=== PATIENT | female | born 1945 | race Caucasian/White ===

== ENCOUNTER 2019-11-12 04:13 | Inpatient (IN) ==
--- NOTE | 2019-11-07 10:52 | EKG Report ---
Test Performed on : 11/07/2019 10:47:59 AM Test Reason : PAT Blood Pressure : / mmHG Vent. Rate : 069 BPM Atrial Rate : 069 BPM P-R Int : 182 ms QRS Dur : 080 ms QT Int : 412 ms P-R-T Axes : 068 028 060 degrees QTc Int : 441 ms Normal sinus rhythm. Anteroseptal infarct , age undetermined Abnormal ECG No previous ECGs available Confirmed by Amando TOWNSEND, Isidro Dc ([id number]) on 11/07/2019 12:24:19 PM
[2019-11-07 11:32] LABS: HEMATOCRIT 25.6 % (37.0-47.0); HEMOGLOBIN 7.3 g/dL (12.0-16.0); MCH 22.3 PG (27-31); MCHC 28.5 g/dL (33-37); MCV 78.3 FL (81-99); MPV 9.3 FL (7.4-10.4); RBC 3.27 XMIL (4.2-5.4); RDW 15.4 % (11.5-14.5); WBC 9.1 X1000 (4.8-10.8)
[2019-11-07 11:52] LABS: CALCIUM 9.7 mg/dL (8.8-10.2); POTASSIUM 4.4 mmol/L (3.5-5.1)
[2019-11-12] MEDS ORDERED: LR 1,000 ML ONE (06:44)
[2019-11-12] MEDS ORDERED: KEFZOL 1 GM/D5W 1 GM/50 ML IVPB ONE (06:44)
[2019-11-12] MEDS ORDERED: ROBINUL ONE (07:41)
[2019-11-12] MEDS ORDERED: XYLOCAINE-MPF 2% ONE (07:41)
[2019-11-12] MEDS ORDERED: DIPRIVAN 1% ONE (07:41)
[2019-11-12] MEDS ORDERED: QUELICIN (DOSE) ONE (07:42)
[2019-11-12] MEDS ORDERED: VERSED ONE (08:00)
[2019-11-12] MEDS ORDERED: MARCAINE 0.25% PF ONE (08:26)
[2019-11-12] MEDS ORDERED: OFIRMEV 1000 MG/ISOTONIC SOLN 1,000 MG/100 ML BOTTLE ONE (09:01)
[2019-11-12 09:06] LABS: URINE SOURCE CATH
[2019-11-12] MEDS ORDERED: SODIUM CHLORIDE 0.9% ONE (09:08)
[2019-11-12 09:10] LABS: BILIRUBIN URINE NEGATIVE (NEGATIVE); BLOOD URINE NEGATIVE (NEGATIVE); COLOR YELLOW; GLUCOSE URINE NEGATIVE (NEGATIVE); KETONE URINE NEGATIVE (NEGATIVE); LEUKOCYTES URINE NEGATIVE (NEGATIVE); NITRITE URINE NEGATIVE (NEGATIVE); PROTEIN URINE NEGATIVE (NEGATIVE); SP GRAVITY URINE 1.013; TURBIDITY URINE CLEAR (CLEAR); UROBILINOGEN URINE NORMAL (NORMAL)
[2019-11-12 09:11] LABS: UR EPITHELIAL CELLS <10 /HPF (<10); URINE BACTERIA NEGATIVE /HPF; URINE RBC <10 /HPF (<10); URINE WBC <10 /HPF (<10)
[2019-11-12] MEDS ORDERED: ZEMURON ONE (09:37)
[2019-11-12] MEDS ORDERED: BRIDION ONE (10:04)
[2019-11-12] MEDS ORDERED: LASIX ONE (10:16)
[2019-11-12] MEDS ORDERED: CALCIUM CHLORIDE SYRINGE ONE (10:17)
[2019-11-12] MEDS ORDERED: FENTANYL ONE (10:58)
[2019-11-12] MEDS ORDERED: ZOFRAN ONE (10:58)
--- NOTE | 2019-11-12 12:28 | Diag Imaging Result Doc PS360 ---
CHEST-PORTABLE - 11/12/2019 INDICATION: post thoracotomy COMPARISON: 10/25/2019 FINDINGS: There are new double left chest tubes. There are new left lateral skin familia. Stable sternotomy wires. Lung volumes are lower. There is some linear atelectasis in the right lung. No pneumothorax or large pleural effusion. IMPRESSION: No definite complication. Electronically signed by Lane Bess 11/12/2019 12:26 PM
[2019-11-12] MEDS: NS 1,000 ML IV SCH (12:30)
[2019-11-12] MEDS: DILAUDID IV PRN ×3 (14:10→20:39)
[2019-11-12] MEDS: OFIRMEV 1000 MG/ISOTONIC SOLN 1,000 MG/100 ML BOTTLE IV SCH ×3 (14:13→23:05)
--- NOTE | 2019-11-12 15:15 | OPERATIVE NOTE ---
PROCEDURE DATE: 11/12/2019 PROCEDURES PERFORMED: 1. Bronchoscopy. 2. Left anterolateral thoracotomy with left upper lobectomy. SURGEON: Bethel Langston M.D. QUANTITATIVE RESEARCHER: Pablito Alvarez RN. 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 DESCRIPTION OF PROCEDURE: Satisfactory general endotracheal anesthesia was achieved. The patient was supine. We introduced the flexible bronchoscope into the trachea. The bill was noted to be about 25 cm. We looked in the right upper lobe, middle lobe, lower lobe orifices on the right, and all appeared normal. We looked in the left side. The left mainstem, left upper lobe, left lower lobe orifices appeared normal. No anomalies were identified. No endobronchial lesions were identified. The patient was then switched to a double lumen tube, and a right-sided double lumen tube was placed, and after the anesthesiologist had checked it and felt that it was appropriately positioned, we then turned the patient on her side with the left side up, and secured her there once again. The anesthesiologist was satisfied that the tube was appropriately positioned. They clamped off the lumen to the left side, and she ventilated satisfactorily without excessive pressures. The left chest was then prepped and draped in a sterile fashion. We marked the skin 2 fingerbreadths below the tip of the scapula. We made a crossing remi so that we could reorient the skin appropriately at the end of the procedure. We then incised the skin, and where it was marked, we made an anterolateral thoracotomy incision. We carried our incision through the subcutaneous tissue, through the latissimus dorsi muscle, through the serratus anterior muscle. Hemostasis was satisfactory. We then lifted up the scapula, and then counted down to the fifth rib. They did clamp off the left side, and so the left lung was deflating while we were opening. We then proceeded to divide the intercostal muscle until we entered the pleural space. We then opened the chest to the extent of the skin incision both posteriorly and anteriorly. There were adhesions anteriorly as expected due to her previous left internal mammary artery bypass graft to her LAD. We then took an extensive amount of time dissecting these adhesions, beginning at the lingula and dissected cephalad or superiorly, but we carefully dissected. We incised the adhesions in the major fissure. We continued our careful dissection with scissors until we actually identified the LONDONO at its proximal aspect. We then continued to dissect on top of it. We identified clips off the LONDONO. We the lung tissue from the LONDONO until the LONDONO was seen to come to the heart itself. We the LONDONO from the left upper lobe, and then took the adhesions down from the back of the sternum, where the LONDONO had originally been positioned. After we took all those adhesions down with electrocautery, we then had the upper lobe completely free anteriorly. It was at this point that we started incising the pleura over the pulmonary artery. We dissected both anteriorly and posteriorly down to the major fissure posteriorly. We used a pusher then to sweep the tissue off the pulmonary artery. We did take a hilar node. We took a mediastinal node and sent those separately. We dissected the branches to the upper lobe, the apical branch, the anterior branch, and the posterior branches. We doubly ligated with 2-0 silks proximally and 2-0 silk distally x1, and then divided the vessels. We then turned our attention to the anterior pulmonary vein, and swept the tissue off of it. We then ligated the branches of the vein individually with 2-0 silks, dissected behind the vein, and used a TA-30 vascular stapler to staple the anterior pulmonary vein. After it was stapled, we then divided the vein. The 3 branches to the upper lobe pulmonary from the pulmonary artery were ligated. The vein was ligated. We then turned our attention to the major fissure. Small clips to the left lower lobe were used to clip off small branches. We then came to the portion of the fissure where there was a very calcified, hard node. It was just above the area of the bronchus. It was intimately attached to the pulmonary artery. It was right where the superior dorsal branch came to the left lower lobe. In dissecting it off the pulmonary artery, we actually made a hole in the pulmonary artery, so we had to clamp the pulmonary artery proximally and distally, and went ahead and excised the node and left it attached to the upper lobe. We then made a hole in the pulmonary artery that required repair with a 6-0 Prolene stitch. After repair, we took the distal clamp off first, and it was hemostatic, and then the proximal clamp off, and only 1 additional stitch was used, and there was complete hemostasis of the pulmonary artery repair. We then were able to localize the upper lobe bronchus, and used a TA-30 degrees green staple to staple it off, and we then handed off the upper lobe. We irrigated out the chest cavity. We incised the inferior pulmonary ligament to free up the lower lobe. We achieved acceptable hemostasis. I did use ProGEL along the hilum of the lower lobe to try to seal the lung completely. Two 32 chest tubes were placed, one anteriorly, one posteriorly. We had an additional two holes in the posterior chest tube to provide adequate drainage. We inflated the lower lobe, and it inflated nicely. Again, hemostasis was acceptable. The LONDONO was completely fine, and we had not affected it whatsoever. We then proceeded to inject using Exparel and Marcaine, 30 mL along the course of the fifth and sixth ribs. We made drill holes in the fifth rib and sixth rib at [address], and then passed #2 Tycron stitches through the ribs for reapproximation. After those were placed, we then reapproximated the ribs with the rib reapproximated, and the #2 Tycrons were tied, thereby reapproximating the ribcage. We then used the rest of the Marcaine and Exparel for the subcutaneous tissue. We then proceeded to close the serratus anterior with a #1 Polysorb, the latissimus was closed with a #1 Polysorb, the subcutaneous tissue was closed with a 0 Polysorb, and the skin was closed with familia. Zero silks were used to secure the chest tubes. The chest tubes were attached to Pleur-evac. Sterile dressings were applied. She tolerated the procedure satisfactory, was given 4 units of blood during the procedure because we started with a hemoglobin of 7. Estimated blood loss was around 600 mL. She was sent to the recovery room in satisfactory condition. cc: Bethel Langston MD
[2019-11-12] MEDS: KEFZOL 1 GM/D5W 1 GM/50 ML IVPB IV SCH (16:16)
[2019-11-12] MEDS: DUONEB (A & A) INH SCH ×2 (16:36→21:20)
[2019-11-12 17:02] LABS: ALLEN TEST NO; BE -1.7 mmoll (-3.0-3.0); BLOOD TYPE ARTERIAL; HCO3-(ACT) 23.6 mmoll (20.0-26.0); METHB 1.1 % (0.0-1.5); O2(CT) 16.1 mL/dL (15.0-23.0); O2HB 96.2 % (95.0-99.0); PCO2(98.6) 48 mmHg (35-45); PO2(98.6) 138 mmHg (60-100); SAMPLE BLOOD; SAO2 99.1 % (95.0-100.0); THB 11.7 g/dL (11.5-17.4); pH(98.6) 7.32 (7.35-7.45)
[2019-11-12 17:06] LABS: MODALITY CANNULA
[2019-11-12] MEDS ORDERED: BLISTEX MEDICATED BERRY LIP BALM TOP PRN (17:13)
[2019-11-12] MEDS: ZOFRAN IV PRN (17:17)
[2019-11-12] MEDS: PERIDEX MT SCH (20:39)
[2019-11-13] MEDS: NS 1,000 ML IV SCH ×3 (00:09→16:42)
[2019-11-13] MEDS: KEFZOL 1 GM/D5W 1 GM/50 ML IVPB IV SCH (00:09)
[2019-11-13] MEDS: ZOFRAN IV PRN ×2 (01:50→20:22)
[2019-11-13] MEDS: DILAUDID IV PRN ×5 (01:50→23:00)
[2019-11-13] MEDS: DUONEB (A & A) INH SCH ×4 (03:35→21:30)
[2019-11-13 06:16] LABS: BASO# 0.01 X1000 (0.0-0.2); BASO% 0.1 % (0.0-0.8); EOS# 0.01 X1000 (0.0-0.7); EOS% 0.1 % (0.0-10.0); HEMATOCRIT 34.7 % (37.0-47.0); HEMOGLOBIN 10.9 g/dL (12.0-16.0); LYMPH# 1.57 X1000 (1.2-3.4); LYMPH% 13.6 % (20.5-51.1); MCH 25.5 PG (27-31); MCHC 31.4 g/dL (33-37); MCV 81.1 FL (81-99); MONO# 0.74 X1000 (0.11-0.59); MONO% 6.4 % (1.7-9.3); MPV 9.7 FL (7.4-10.4); NEUT# 9.19 X1000 (1.4-6.5); NEUT% 79.8 % (42.2-75.2); PLT 365 X1000 (130-400); RBC 4.28 XMIL (4.2-5.4); RDW 16.3 % (11.5-14.5); WBC 11.52 X1000 (4.8-10.8)
[2019-11-13 06:37] LABS: AGAP 11; BUN 17 mg/dL (8-22); CALCIUM 8.7 mg/dL (8.8-10.2); CHLORIDE 104 mmol/L (98-107); COSMO 274; CREATININE 0.8 mg/dL (0.5-0.9); ESTIMATED GFR > 60; GLUCOSE 110 mg/dL (70-104); POTASSIUM 3.9 mmol/L (3.5-5.1); SODIUM 136 mmol/L (136-145); TCO2 21 mmol/L (25-35)
[2019-11-13] MEDS: SYNTHROID PO SCH (06:43)
[2019-11-13] MEDS: OFIRMEV 1000 MG/ISOTONIC SOLN 1,000 MG/100 ML BOTTLE IV SCH ×4 (06:43→23:00)
--- NOTE | 2019-11-13 07:30 | Diag Imaging Result Doc PS360 ---
CHEST-PORTABLE - 11/13/2019 INDICATION: chest tubes COMPARISON: 11/12/2019 FINDINGS: Stable double left chest tubes. No pneumothorax or pleural effusion. Lung expansion is improved from prior. No significant infiltrates. Heart size remains normal. IMPRESSION: No complication. Electronically signed by Lane Bess 11/13/2019 7:28 AM
[2019-11-13] MEDS: LOTENSIN PO SCH (08:31)
[2019-11-13] MEDS: LIPITOR PO SCH (08:31)
[2019-11-13] MEDS: PERIDEX MT SCH ×2 (08:31→20:22)
--- NOTE | 2019-11-13 10:34 | GENERAL SURGERY PROGRESS NOTE ---
DATE: 11/13/2019 SUBJECTIVE: She is postop day 1 after a left thoracotomy and left upper lobectomy. She is doing generally well. She is awake and alert. OBJECTIVE: Vital signs: She is afebrile, heart rate 88, blood pressure 148/57. Respiratory: She has bilateral breath sounds. IMAGING: Her chest x-ray shows an expanded left lower lung. No significant fluid. I do not see an air leak this morning. She is hungry. Her urine output has been good. LABORATORY DATA: Today reveals a white count 61661, hemoglobin 10.9, hematocrit 34.7. Chemistry shows a potassium of 3.9. ASSESSMENT AND PLAN: I think she is doing generally well. We will remove her arterial line today. We will give her regular food. We will keep her Pedroza today. She is to get up in a chair. cc: Bethel Langston MD
[2019-11-14] MEDS: ZOFRAN IV PRN ×2 (02:33→20:08)
[2019-11-14] MEDS: DUONEB (A & A) INH SCH ×4 (03:30→22:52)
[2019-11-14] MEDS: OFIRMEV 1000 MG/ISOTONIC SOLN 1,000 MG/100 ML BOTTLE IV SCH (05:13)
[2019-11-14 06:18] LABS: BASO# 0.01 X1000 (0.0-0.2); BASO% 0.1 % (0.0-0.8); EOS# 0.06 X1000 (0.0-0.7); EOS% 0.6 % (0.0-10.0); HEMATOCRIT 33.9 % (37.0-47.0); HEMOGLOBIN 10.5 g/dL (12.0-16.0); LYMPH# 1.26 X1000 (1.2-3.4); LYMPH% 11.7 % (20.5-51.1); MCH 25.4 PG (27-31); MCV 81.9 FL (81-99); MONO# 1.07 X1000 (0.11-0.59); MONO% 9.9 % (1.7-9.3); MPV 9.3 FL (7.4-10.4); NEUT# 8.38 X1000 (1.4-6.5); NEUT% 77.7 % (42.2-75.2); PLT 359 X1000 (130-400); RBC 4.14 XMIL (4.2-5.4); RDW 17.2 % (11.5-14.5); WBC 10.78 X1000 (4.8-10.8)
[2019-11-14] MEDS: SYNTHROID PO SCH (06:24)
--- NOTE | 2019-11-14 07:11 | Diag Imaging Result Doc PS360 ---
EXAM: CHEST-PORTABLE 11/14/2019 HISTORY: post thoracotomy TECHNIQUE: AP portable at 0539 COMMENT: There are two chest tubes in the left hemithorax. There are surgical clips in the left hilar region and elevation of the left hemidiaphragm. There is apparent pneumothorax which may include some pleural fluid on the left measuring less than 6 mm over the upper lobe. This is slightly wider than on the previous examination of 11/13/2019. There is a smaller amount of fluid in the minor fissure on the right. IMPRESSION: Slightly enlarged left pneumothorax. Electronically signed by Venkatesh Santiago 11/14/2019 7:09 AM
[2019-11-14] MEDS ORDERED: NS 1,000 ML IV SCH (07:13)
[2019-11-14] MEDS: LOTENSIN PO SCH (08:26)
[2019-11-14] MEDS: PERIDEX MT SCH ×2 (08:26→20:08)
[2019-11-14] MEDS: LIPITOR PO SCH (08:26)
[2019-11-14] MEDS: NORCO-10 PO PRN ×4 (08:28→20:59)
[2019-11-14] MEDS: ASPIRIN PO SCH (10:41)
[2019-11-14] MEDS: BRILINTA PO SCH (10:41)
--- NOTE | 2019-11-14 12:12 | GENERAL SURGERY PROGRESS NOTE ---
DATE: 11/14/2019 SUBJECTIVE: She is 2 days after left upper lobectomy. This morning she is doing generally well. She is afebrile. OBJECTIVE: Heart rate is 96, blood pressure 139/62. She has bilateral breath sounds. Respiratory rate is 18. DIAGNOSTIC DATA: Her chest x-ray looks satisfactory. Her left lower lobe was well expanded. Intake 2120 and output 2355. I do not see an air leak in her anterior tube, minimal one in the posterior tube. Her white count is 10,800, hemoglobin 10.5. ASSESSMENT: Satisfactory progress. PLAN: The plan is to remove her anterior tube today. We will remove her Pedroza catheter. We will transfer her out to a regular room. cc: Bethel Langston MD
[2019-11-14] MEDS ORDERED: AMBIEN PO PRN (15:24)
[2019-11-14] MEDS ORDERED: MELATONIN PO PRN (17:44)
[2019-11-14] MEDS: DILAUDID IV PRN (20:02)
[2019-11-15] MEDS: NORCO-10 PO PRN (00:44)
[2019-11-15] MEDS: DILAUDID IV PRN ×3 (01:10→06:27)
[2019-11-15] MEDS: DUONEB (A & A) INH SCH ×3 (03:23→15:33)
[2019-11-15] MEDS: SYNTHROID PO SCH (06:27)
--- NOTE | 2019-11-15 06:42 | Diag Imaging Result Doc PS360 ---
EXAM: CHEST-PORTABLE HISTORY: post thoracotomy TECHNIQUE: Single view COMPARISON: 11/14/2019 FINDINGS: One of the left-sided chest tubes has been removed. No change in the other chest tube. Tiny left pneumothorax. There are lateral skin familia. Sternal wires and left hilar surgical clips. The lungs are well expanded. No infiltrates. No cardiomegaly. No pleural effusions identified. IMPRESSION: Slight improvement Electronically signed by Johnathon Jay 11/15/2019 6:39 AM
[2019-11-15] MEDS ORDERED: SALINE LOCK IV FLUID XX ONE (07:29)
[2019-11-15] MEDS ORDERED: DEMEROL PO PRN (07:30)
[2019-11-15] MEDS: PERIDEX MT SCH (08:37)
[2019-11-15] MEDS: LIPITOR PO SCH (08:37)
[2019-11-15] MEDS: BRILINTA PO SCH (08:37)
[2019-11-15] MEDS: ASPIRIN PO SCH (08:37)
[2019-11-15] MEDS: LOTENSIN PO SCH (08:39)
[2019-11-15] MEDS ORDERED: COLACE PO SCH (09:00)
[2019-11-15] MEDS ORDERED: NS 500 ML IV ONE (10:01)
--- NOTE | 2019-11-15 15:33 | GENERAL SURGERY PROGRESS NOTE ---
DATE: 11/15/2019 OBJECTIVE: She is afebrile, heart rate is 86, blood pressure 88/58. She has good breath sounds bilaterally. I do not see an air leak today, so we will remove her chest tube. Her chest x-ray looks fine. We will see her later today and consider her for discharge. Her wound looks fine. cc: Bethel Langston MD
[2019-11-15 15:57] VITALS: BP 148/72
--- NOTE | 2019-11-23 19:53 | DISCHARGE SUMMARY ---
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 PRIMARY PROCEDURE: Left thoracotomy left upper lobectomy. This is a 74-year-old lady who came to see me because of her left upper lobe cancer. It was previously biopsied percutaneously and found to be a squamous cell. She has a history of coronary artery disease, and has had previous coronary bypass using internal mammary on the left side. Her preoperative pulmonary evaluation was satisfactory to proceed with a lobectomy. She underwent the noted operation on the . Postoperatively she did generally well. We removed the arterial line on the first postoperative day. We did give her Exparel and Marcaine at the time of the surgery which did improve her and enhanced her pain relief postoperatively. We removed her anterior chest tube on the second postoperative day. We removed her Pedroza catheter as well. Transferred out of the unit. We were able to remove her posterior chest tube on the . It was felt she could be discharged home. So, we did allow her to go home the afternoon of the . It was difficult to find appropriate p.o. medicine for pain relief so we gave her a prescription for Demerol for p.o. pain relief. She will resume her Brilinta and other medications. She will return to see me in the office in over a week for staple removal. cc: Bethel Langston MD
== END 2019-11-15 17:18 | disposition home health service (06) | DRG 164 ==
LOC: SURHOLD 04:13 → ICU 13:34 → 4N 11-14 11:20
PROVIDERS: ADMIT Surgery; ATTEND Surgery

== ENCOUNTER 2019-11-27 09:14 | Inpatient (IN) ==
[2019-11-27] MEDS ORDERED: DUONEB (A & A) INH ONE (09:34)
[2019-11-27] MEDS ORDERED: ZOFRAN IV ONE (09:34)
[2019-11-27] MEDS ORDERED: MORPHINE IV ONE (09:34)
[2019-11-27] MEDS ORDERED: SOLU-MEDROL IV ONE (09:34)
--- NOTE | 2019-11-27 09:37 | EKG Report ---
Test Performed on : 11/27/2019 09:30:50 AM Test Reason : sob Blood Pressure : / mmHG Vent. Rate : 070 BPM Atrial Rate : 070 BPM P-R Int : 162 ms QRS Dur : 074 ms QT Int : 422 ms P-R-T Axes : 056 005 144 degrees QTc Int : 455 ms Normal sinus rhythm. Possible Left atrial enlargement Possible Anterior infarct (cited on or before 07-NOV-2019) T wave abnormality, consider lateral ischemia Abnormal ECG When compared with ECG of 07-NOV-2019 10:47, T wave inversion now evident in Inferior leads T wave inversion now evident in Lateral leads Unconfirmed Result
[2019-11-27 10:04] LABS: ALLEN TEST NO; BE -0.6 mmoll (-3.0-3.0); BLOOD TYPE ARTERIAL; HCO3-(ACT) 24.4 mmoll (20.0-26.0); METHB 1.3 % (0.0-1.5); MODALITY ROOM AIR; O2(CT) 14.3 mL/dL (15.0-23.0); O2HB 95.4 % (95.0-99.0); PCO2(98.6) 30 mmHg (35-45); PO2(98.6) 84 mmHg (60-100); SAMPLE BLOOD; SAO2 97.7 % (95.0-100.0); THB 10.6 g/dL (11.5-17.4); pH(98.6) 7.48 (7.35-7.45)
--- NOTE | 2019-11-27 10:19 | Diag Imaging Result Doc PS360 ---
EXAM: CHEST-2 VIEWS HISTORY: sob, recent left pneumonectomy TECHNIQUE: Two views COMPARISON: 11/15/2019 FINDINGS: There has been a partial left lung resection. The left hemidiaphragm is elevated. The right lung is well expanded and clear. No cardiomegaly. No pulmonary edema. No infiltrates. No pleural effusions. No pneumothoraces. IMPRESSION: No acute abnormality. Electronically signed by Johnathon Jay 11/27/2019 10:16 AM
[2019-11-27 10:21] LABS: AGAP 14; ALB/GLOB RATIO 1.1; ALBUMIN 3.6 g/dL (3.5-5.0); ALKALINE PHOSPHATASE 107 U/L (32-104); BUN 17 mg/dL (8-22); CALCIUM 8.6 mg/dL (8.8-10.2); CHLORIDE 102 mmol/L (98-107); COSMO 280; CREATININE 0.8 mg/dL (0.5-0.9); ESTIMATED GFR > 60; GLUCOSE 108 mg/dL (70-104); GOT 37 U/L (10-30); GPT 23 U/L (10-36); POTASSIUM 4.3 mmol/L (3.5-5.1); SODIUM 139 mmol/L (136-145); TCO2 23 mmol/L (25-35); TOTAL BILIRUBIN 0.26 mg/dL (0.20-1.00); TOTAL PROTEIN 6.9 g/dL (6.3-8.3)
[2019-11-27 10:22] LABS: BASO# 0.04 X1000 (0.0-0.2); BASO% 0.5 % (0.0-0.8); EOS# 0.24 X1000 (0.0-0.7); EOS% 2.9 % (0.0-10.0); HEMATOCRIT 35.8 % (37.0-47.0); HEMOGLOBIN 10.9 g/dL (12.0-16.0); IMM GRAN# 0.03 X1000 (0.0-0.04); IMM GRAN% 0.4 % (0.0-0.5); LYMPH# 1.44 X1000 (1.2-3.4); LYMPH% 17.2 % (20.5-51.1); MCH 25.1 PG (27-31); MCHC 30.4 g/dL (33-37); MCV 82.3 FL (81-99); MONO# 0.59 X1000 (0.11-0.59); MONO% 7.1 % (1.7-9.3); MPV 9.6 FL (7.4-10.4); NEUT# 6.02 X1000 (1.4-6.5); NEUT% 71.9 % (42.2-75.2); PLT 549 X1000 (130-400); RBC 4.35 XMIL (4.2-5.4); RDW 18.7 % (11.5-14.5); WBC 8.36 X1000 (4.8-10.8)
[2019-11-27 10:23] LABS: CK PROFILE 481 U/L (24-173)
[2019-11-27 10:26] LABS: INR 0.96; PROTIME 12.9 Seconds (11.0-16.0)
[2019-11-27 10:27] LABS: PTT 39.1 Seconds (22.3-41.8)
[2019-11-27 10:50] LABS: CK-MB 14.61 ng/mL (0.0-5.0)
--- NOTE | 2019-11-27 12:54 | Diag Imaging Result Doc PS360 ---
EXAM: CT ANGIOGRM PULMONARY ARTERIES INDICATION: shortness of breath TECHNIQUE: This exam was performed using automated exposure control, adjustment of mA or kV according to patient size, and/or use of iterative reconstruction technique. Thin section axial images and 3-D MIPS were obtained. COMPARISON: 09/11/2019 FINDINGS: There is no evidence of pulmonary embolism. There is patchy aortic calcification. There is no evidence of aortic aneurysm or dissection. There is no cardiomegaly. There has been a recent partial pneumonectomy on the left during the interval. There is a moderate to large pleural effusion on the left. There is a single tiny droplet of gas within the fluid on image 42 series 4. There is mild atelectasis at the left lung base. The right lung remains clear. Limited views of the upper abdomen are grossly unremarkable. There are degenerative changes involving the spine. There is no evidence of acute osseous abnormality. IMPRESSION: 1.Interval partial pneumonectomy on the left. 2.Moderate to large size left pleural effusion with left basilar atelectasis. 3.No evidence of pulmonary embolism. Electronically signed by Tristan Davis 11/27/2019 12:51 PM
[2019-11-27] MEDS ORDERED: LASIX IV ONE (12:59)
--- NOTE | 2019-11-27 13:18 | PROVIDER DOCUMENTATION ---
This chart was entered by Milena Rosado Scribe, acting as scribe for Rafael Ferraro MD. HPI-Respiratory General - General Chief Complaint: Shortness of Breath Stated Complaint: SOB Time Seen by Provider: 11/27/19 09:27 Source: patient Allergies/Adverse Reactions: Patient Allergies Allergy/AdvReac Type Severity Reaction Status Date / Time codeine Allergy HEADACHE Verified 11/27/19 10:20 Home Medications: Home Medication List Medication Instructions Recorded Confirmed Last Taken Type ATORVAstatin [Lipitor] 40 mg PO DAILY 10/25/19 11/12/19 11/11/19 07:00 History BENAZEpril [Lotensin] 20 mg PO DAILY 10/25/19 11/12/19 11/11/19 07:00 History Diclofenac Sodium 75 mg PO DAILY 10/25/19 11/12/19 11/09/19 07:00 History Levothyroxine [Synthroid] 0.05 mg PO DAILY 10/25/19 11/12/19 11/05/19 08:00 History Ticagrelor [Brilinta] 90 mg PO DAILY 10/25/19 11/07/19 11/05/19 07:00 History Aspirin 81 mg PO DAILY 11/07/19 11/12/19 11/09/19 17:00 History Meperidine [Demerol] 50 mg PO Q4H PRN PRN #14 tab 11/15/19 Unknown Rx - History of Present Illness-Resp Nature of Presenting Problem: Patient is a 74 y/o female presenting to the ED today c/o SOB and specifically dyspnea on exertion. Patient reports she had a left pneumonectomy approximately [address] Langston for lung cancer. Patient reports over the last 2-3 days, she has been experiencing SOB, specifically with activity. Patient denies orthopnea but reports that she is able to breath better when sitting upright. Patient denies fever, chills, or cough. Patient denies prior smoking history. Patient denies all other signs/symptoms. Quality of Pain: reports: none Onset/Duration: reports: 3 days ago Timing: reports: still present Context: reports: other (recent left pneumonectomy) Cough Quality/Degree: reports: no cough Episode Frequency: no prior episodes Current Respiratory Medication Therapy: Initiated none Modifying Factors: improves with: sitting upright. worse with: exertion Associated Symptoms: reports: shortness of breath. denies: chest pain/soreness, cough, fever/chills Similar Symptoms Previously?: No Recently seen or treated by another doctor?: No Review of Systems - Adult - REVIEW OF SYSTEMS - ADULT Constitutional: denies: chills, fever Eyes: reports: no symptoms reported Ears, Nose, Mouth & Throat: reports: no symptoms reported Cardiovascular: denies: chest pain, orthopnea Respiratory: reports: shortness of breath. denies: cough Gastrointestinal: denies: abdominal pain, diarrhea, nausea, vomiting Genitourinary: reports: no symptoms reported Musculoskeletal: reports: no symptoms reported Integumentary: reports: no symptoms reported Neurological: reports: no symptoms reported Psychiatric: reports: no symptoms reported Endocrine: reports: no symptoms reported Hematologic/Lymphatic: reports: no symptoms reported Allergic/Immunologic: reports: no symptoms reported All Other Systems: Reviewed and Negative Past History - Adult - PAST MEDICAL HISTORY-ADULT Review of Records: reports: Old Records Reviewed, Nursing Assessment Review, Medications Reviewed, Social history reviewed & non-contributory. Major Childhood Illnesses: reports: denies history Cardiovascular: reports: denies history Respiratory: reports: cancer (recent lung CA diagnosis) Gastrointestinal: reports: denies history Obstetrical/Gynecological: reports: denies history Genitourinary: reports: denies history Musculoskeletal: reports: denies history Neurological: reports: denies history Psychiatric: reports: denies history Endocrine/Immune: reports: denies history Other Conditions: reports: denies history Physical Exam-General - PHYSICAL EXAM-ADULT Initial Vital Signs Reviewed: Yes - CONSTITUTIONAL General Appearance: alert, no apparent distress, thin, anxious - EYES Eyes: PERRL/EOMI, pink conjunctivae - HEAD, EARS, NOSE, MOUTH & THROAT HENMT: normocephalic/atraumatic, moist mucous membranes - NECK Neck: full range of motion, other (ecchymosis on left side of neck - patient reports present after surgery) - RESPIRATORY Respiratory: no respiratory distress, no accessory muscle use, decreased breath sounds (on left), wheezing (rare scattered) - CARDIOVASCULAR Cardiovascular: regular rate, rhythm, no edema - GASTROINTESTINAL (ABDOMEN) Abdominal Exam: non tender, soft - LYMPHATIC Lymphatic: no adenopathy - MUSCULOSKELETAL Back Exam: normal inspection Extremity: normal range of motion, normal gait, normal inspection - SKIN Integumentary: normal color, normal turgor, warm/dry, other (well healing surgical incision over left scapula with no erythema, edema, or signs of infection) - NEUROLOGIC Neurologic: grossly normal, no motor/sensory deficits - PSYCHIATRIC Psych/Mental Status: normal mood/affect, normal thought content, normal thought process Progress - PLAN OF CARE/RESULTS Progress/Plan/Lab Results: Vital Signs - 8 hr 11/27/19 09:18 11/27/19 09:48 Temperature 97.8 F Pulse Rate 71 72 Respiratory Rate 20 14 Blood Pressure 112/65 O2 Sat by Pulse Oximetry 99 100 11/27/19 09:42 Influenza Screen - Final Nasopharyngeal Laboratory Results - last 24 hr 11/27/19 11/27/19 11/27/19 09:42 09:42 09:42 WBC 8.36 RBC 4.35 Hgb 10.9 L Hct 35.8 L MCV 82.3 MCH 25.1 L MCHC 30.4 L RDW Std Deviation 18.7 H Plt Count 549 H MPV 9.6 Immature Gran % (Auto) 0.4 Neut % (Auto) 71.9 Lymph % (Auto) 17.2 L [place] % (Auto) 7.1 Eos % (Auto) 2.9 Baso % (Auto) 0.5 Immature Gran # (Auto) 0.03 Neut # (Auto) 6.02 Lymph # (Auto) 1.44 [place] # (Auto) 0.59 Eos # (Auto) 0.24 Baso # (Auto) 0.04 PT INR PTT (Actin FS) Specimen Type Sample Site pH pCO2 pO2 HCO3 Base Excess Oxyhemoglobin ABG O2 Sat (Calculated) ABG O2 Saturation ABG Carboxyhemoglobin ABG Methemoglobin Zay Test A-a O2 Difference Total Hemoglobin Lactate Blood Gas Modality FiO2 % Sodium 139 Potassium 4.3 Chloride 102 Carbon Dioxide 23 L Anion Gap 14 BUN 17 Creatinine 0.8 Estimated GFR/1.73 m2 > 60 BUN/Creatinine Ratio 21 Glucose 108 H Calculated Osmolality 280 Calcium 8.6 L Total Bilirubin 0.26 AST 37 H ALT 23 Alkaline Phosphatase 107 H Creatine Kinase 481 H Creatine Kinase Index 3.0 H CK-MB (CK-2) 14.61 H Troponin T High Sens Ofj-A-Vfrblybfdcj Pept 3246 H Total Protein 6.9 Albumin 3.6 Globulin 3.3 Albumin/Globulin Ratio 1.1 Plasma Lactate 11/27/19 11/27/1911/27/20 09:42 09:42 09:42 WBC RBC Hgb Hct MCV MCH MCHC RDW Std Deviation Plt Count MPV Immature Gran % (Auto) Neut % (Auto) Lymph % (Auto) [place] % (Auto) Eos % (Auto) Baso % (Auto) Immature Gran # (Auto) Neut # (Auto) Lymph # (Auto) [place] # (Auto) Eos # (Auto) Baso # (Auto) PT 12.9 INR 0.96 PTT (Actin FS) 39.1 Specimen Type Sample Site pH pCO2 pO2 HCO3 Base Excess Oxyhemoglobin ABG O2 Sat (Calculated) ABG O2 Saturation ABG Carboxyhemoglobin ABG Methemoglobin Zay Test A-a O2 Difference Total Hemoglobin Lactate Blood Gas Modality FiO2 % Sodium Potassium Chloride Carbon Dioxide Anion Gap BUN Creatinine Estimated GFR/1.73 m2 BUN/Creatinine Ratio Glucose Calculated Osmolality Calcium Total Bilirubin AST ALT Alkaline Phosphatase Creatine Kinase Creatine Kinase Index CK-MB (CK-2) Troponin T High Sens 59 H Uvg-J-Cdyzgjpuepk Pept Total Protein Albumin Globulin Albumin/Globulin Ratio Plasma Lactate 1.1 11/27/19 09:45 WBC RBC Hgb Hct MCV MCH MCHC RDW Std Deviation Plt Count MPV Immature Gran % (Auto) Neut % (Auto) Lymph % (Auto) [place] % (Auto) Eos % (Auto) Baso % (Auto) Immature Gran # (Auto) Neut # (Auto) Lymph # (Auto) [place] # (Auto) Eos # (Auto) Baso # (Auto) PT INR PTT (Actin FS) Specimen Type ARTERIAL Sample Site R BRACHIAL pH 7.48 H pCO2 30 L pO2 84 HCO3 24.4 Base Excess -0.6 Oxyhemoglobin 95.4 ABG O2 Sat (Calculated) 14.3 L ABG O2 Saturation 97.7 ABG Carboxyhemoglobin 1.20 ABG Methemoglobin 1.3 Zay Test NO A-a O2 Difference 28.0 Total Hemoglobin 10.6 L Lactate 1.30 Blood Gas Modality ROOM AIR FiO2 % 21.0 Sodium Potassium Chloride Carbon Dioxide Anion Gap BUN Creatinine Estimated GFR/1.73 m2 BUN/Creatinine Ratio Glucose Calculated Osmolality Calcium Total Bilirubin AST ALT Alkaline Phosphatase Creatine Kinase Creatine Kinase Index CK-MB (CK-2) Troponin T High Sens Mgr-R-Jxmtmrkolsz Pept Total Protein Albumin Globulin Albumin/Globulin Ratio Plasma Lactate Orders Category Date Time Status Cardiac Monitoring DIRECTED Care 11/27/19 09:32 Active Oxygen Therapy- ED Nursing DIRECTED Care 11/27/19 09:32 Active Saline Loc NOW Care 11/27/19 09:32 Active CHEST-2 VIEWS [RAD] Stat Exams 11/27/19 09:[address] ANGIOGRM PULMONARY ARTERIES [CT] Stat Exams 11/27/19 09:33 Completed ABG [RESP] Routine Lab 11/27/19 09:45 Completed BLOOD CULTURE [BLDCUL] Stat Lab 11/27/19 09:42 Results CBC WITH ELECTRONIC DIFF [HEME] Stat Lab 11/27/19 09:42 Completed CK PROFILE [SP CHEM] Stat Lab 11/27/19 09:42 Completed COMPREHENSIVE METABOLIC PANEL [CHEM] Stat Lab 11/27/19 09:42 Completed INFLUENZA SCREEN A/B Stat Lab 11/27/19 09:42 Completed LACTATE, PLASMA [CHEM] Stat Lab 11/27/19 09:42 Completed PRO B-NATRIURETIC PEPTIDE Stat Lab 11/27/19 09:42 Completed PROTIME WITH INR [COAG] Stat Lab 11/27/19 09:42 Completed PTT [COAG] Stat Lab 11/27/19 09:42 Completed TROPONIN T HIGH SENSITIVITY Stat Lab 11/27/19 09:42 Completed Albuterol 2.5MG/Ipratrop 0.5MG [Duoneb (A & A)] Med 11/27/19 09:34 Disconti nued 3 ml INH NOW ONE Furosemide [Lasix] Med 11/27/19 12:59 Discontinued 40 mg IV NOW ONE Methylprednisolone Sod Succ [Solu-Medrol] Med 11/27/19 09:34 Discontinued 125 mg IV NOW ONE Morphine Med 11/27/19 09:34 Discontinued 2 mg IV NOW ONE Ondansetron [Zofran] Med 11/27/19 09:34 Discontinued 4 mg IV NOW ONE Aerosol Treatments Routine Oth 11/27/19 09:35 Completed Aerosol Treatments Stat Oth 11/27/19 09:35 Completed CP/SOB/Palp >45 yrs of Age Stat Oth 11/27/19 09:32 Ordered EKG [EKG] Stat Ther 11/27/19 09:32 Draft Result Diagrams: 11/27/19 09:42 11/27/19 09:42 - REASSESSMENT Reassessment #1 Time Reassessed: 13:00 Status: improving (Given duoneb, O2, IV lasix. Is not septic. Likely has new onset CHF with large left pleural effusion) - EKG 1 Time of EKG reading by physician:: 09:30 EKG Read and Signed by:: Rafael Ferraro EKG Interpretation (*Must complete 3 of following elements*): Abnormal Rate: 70 Rhythm: Normal sinus rhythm QRS: poor R wave progression ST Wave: non-specific ST changes Comments: old anterior wall SC - XRAY 1 XRAY Study: Chest Impression: See EMR Report (EXAM: CHEST-2 VIEWS HISTORY: sob, recent left pneumonectomy TECHNIQUE: Two views COMPARISON: 11/15/2019 FINDINGS: There has been a partial left lung resection. The left hemidiaphragm is elevated. The right lung is well expanded and clear. No cardiomegaly. No pulmonary edema. No infiltrates. No pleural effusions. No pneumothoraces. IMPRESSION: No acute abnormality. Electronically signed by Johnathon Jay 11/27/2019 10:16 AM 11/27/19 1016 Interpreting Physician: Johnathon Jay MD Dictated Date/Time: 11/27/19 1015 cc: Rafael Ferraro MD; None,PCP) - CT/MRI 1 CT Study: Angiogram Impression: Abnormal, See EMR Report (Signed EXAM: CT ANGIOGRM PULMONARY ARTERIES INDICATION: shortness of breath TECHNIQUE: This exam was performed using automated exposure control, adjustment of mA or kV according to patient size, and/or use of iterative reconstruction technique. Thin section axial images and 3-D MIPS were obtained. COMPARISON: 09/11/2019 FINDINGS: There is no evidence of pulmonary embolism. There is patchy aortic calcification. There is no evidence of aortic aneurysm or dissection. There is no cardiomegaly. There has been a recent partial pneumonectomy on the left during the interval. There is a moderate to large pleural effusion on the left. There is a single tiny droplet of gas within the fluid on image 42 series 4. There is mild atelectasis at the left lung base. The right lung remains clear. Limited views of the upper abdomen are grossly unremarkable. There are degenerative changes involving the spine. There is no evidence of acute osseous abnormality. IMPRESSION: 1.Interval partial pneumonectomy on the left. 2.Moderate to large size left pleural effusion with left basilar atelectasis. 3.No evidence of pulmonary embolism. Electronically signed by Tristan Davis 11/27/2019 12:51 PM 11/27/19 1251 Interpreting Physician: Tristan Davis MD Dictated Date/Time: 11/27/19 1243 cc: Rafael Ferraro MD; None,PCP) 2 CT Study: Angiogram Impression: See EMR Report (EXAM: CT ANGIOGRM PULMONARY ARTERIES INDICATION: shortness of breath TECHNIQUE: This exam was performed using automated exposure control, adjustment of mA or kV according to patient size, and/or use of iterative reconstruction technique. Thin section axial images and 3-D MIPS were obtained. COMPARISON: 09/11/2019 FINDINGS: There is no evidence of pulmonary embolism. There is patchy aortic calcification. There is no evidence of aortic aneurysm or dissection. There is no cardiomegaly. There has been a recent partial pneumonectomy on the left during the interval. There is a moderate to large pleural effusion on the left. There is a single tiny droplet of gas within the fluid on image 42 series 4. There is mild atelectasis at the left lung base. The right lung remains clear. Limited views of the upper abdomen are grossly unremarkable. There are degenerative changes involving the spine. There is no evidence of acute osseous abnormality. IMPRESSION: 1.Interval partial pneumonectomy on the left. 2.Moderate to large size left pleural effusion with left basilar atelectasis. 3.No evidence of pulmonary embolism. Electronically signed by Tristan Davis 11/27/2019 12:51 PM 11/27/19 1251 Interpreting Physician: Tristan Davis MD Dictated Date/Time: 11/27/19 1243 cc: Rafael Ferraro MD; None,PCP) - CONSULTS/PCP/HOSPITALIST Notification #1 *Consult/PCP/Hospitalist*: Kian, Surgeon, paged at [phone] Consult Disposition: other (He is in the OR at 1306, will call back between cases.) #2 Consult: [place] hospitalist KAROL, paged at [phone] Time Discussed: 13:18 Consult Disposition: Will see in ED, Admit Departure - Departure Date of Disposition Decision: 11/27/19 Time of Disposition Decision: 13:11 DIAGNOSIS: Heart failure, left systolic, acute, Pleural effusion on left, Dyspnea and respiratory abnormalities Disposition: ADMITTED INPATIENT 09 Certified Medical Emergency: Emergent Condition: Fair Referrals and Follow-Ups: None,PCP [Primary Care Provider] - - Critical Care Note This patient required my direct & personal management of CC.: Yes Total Time (mins): 35 Critical Care Statement: This patient required my direct personal management to treat or rule out processes, the absence of which, could potentiallly result in sudden, clinically significant life or limb threatening deterioration. Attestation - Physician/ TODD Attestation Patient care was provided by Advanced Practice Provider:: No The physician spent face to face time with patient:: Yes Advanced Practice Provider documentation review:: Supervising physician onsite and consulted in the evaluation and care of this patient. The physician did have a face to face encounter with the patient. This chart was documented by the indicated scribe, (Milena Rosado Scribe) and accurately reflects the services I performed and decisions made by me, Rafael Ferraro MD, as attested by the provider's signature.
[2019-11-27] MEDS ORDERED: ZOFRAN IV PRN (16:09)
[2019-11-27] MEDS ORDERED: LINZESS PO SCH (17:15)
--- NOTE | 2019-11-27 17:44 | GENERAL SURGERY CONSULTATION ---
DATE: 11/27/2019 HISTORY: Ms. 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 Her pathology revealed no positive nodes, and less than 2 cm lesion. Her surgery was on 11/12 so she is just a little over 2 weeks since her left upper lobectomy. Apparently, she was admitted with some shortness of breath. Her imaging shows a little bit of fluid in the left lung base. Today, she denies any shortness of breath and seems to be fine. Apparently, her lytbezpo-nf-gbk told me she had suffered some heaviness in her chest concerning for angina. Her past history is known for ischemic heart disease. She has had coronary bypass quite a few years ago, and has a left internal mammary to her LAD. PHYSICAL EXAMINATION: Vital Signs: On examination, she is afebrile. Heart rate 75 and blood pressure 129/66. Lungs: She has breath sounds bilaterally. They are diminished in the left base as expected because of the removal of half of her left lung. Her left lower lobe is elevated. Diaphragm is elevated due to the previous thoracotomy and left upper lobe resection. Heart: Regular rate and rhythm. Abdomen: Soft. Her wound is fine. Neurologic: She is awake, alert, and oriented. LABORATORY: Her white count is 8300, hemoglobin 10.9, and hematocrit 35.8. Her gases show a pH 7.48, pCO2 30, PO2 of 84 on room air. Her O2 saturation was 97%. Her CPK is elevated at 481, CK index 3.0, and CK-MB is 14.6. Troponin high sensitivity is 59, proBNP is 3246. ASSESSMENT: She has no postoperative pulmonary issues. The pleural effusion on the left of no consequence. She is afebrile. Her white count is normal, and this is typical postoperative pleural fluid. I did not think any tap needs to be done. I think she continues to convalesce satisfactorily after her pulmonary resection. The heaviness in her chest is of some concern, and I do agree that the cardiology evaluation may be in order. Thanks for the opportunity to see her. cc: Bethel Langston MD
--- NOTE | 2019-11-27 19:47 | HISTORY AND PHYSICAL ---
PRIMARY CARE PROVIDER: Dr. Strickland. GENERAL SURGEON: Bethel Langston MD CHIEF COMPLAINT: Shortness of breath. HISTORY OF PRESENT ILLNESS: Ms. 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 It continued to progressively get worse. She called her [id number]-[id number] who works for Dr. Langston. They felt she needed to come to the ED to be evaluated. Workup in the ED with a pulmonary arteriogram revealed a moderate to large size left pleural effusion with left basilar atelectasis but no PE. She was given a dose of IV Lasix, and we will place a consult for Dr. Bethel Langston to see if he would like to place another chest tube or what intervention he would like to proceed with. She is currently saturating well on room air. PAST MEDICAL HISTORY: Per HPI. PAST SURGICAL HISTORY: Recent left thoracotomy and left upper lobectomy, CABG in 2010, spinal fusion to lower back, appendectomy, hysterectomy. SOCIAL HISTORY: She is a former smoker, 2 packs per day since the age of 19. She quit smoking in 2003, 80 pack-year history. No alcohol or illicit drug use. She is . is at bedside. FAMILY HISTORY: Father with heart disease. ALLERGIES: Codeine. HOME MEDICATIONS: Currently being compiled. PHYSICAL EXAMINATION: VITAL SIGNS: Temperature is 97.8 degrees, heart rate 71, respirations 20, blood pressure 112/65, O2 is 99% on room air. GENERAL: Ms. Ortiz is a pleasant 74-year-old female who is sitting up in the bed in no acute distress. HEENT: Atraumatic, normocephalic. PERRL. NECK: Supple. Trachea midline. CARDIOVASCULAR: S1, S2 appreciated. No murmurs, gallops, or rubs noted. RESPIRATORY: Lung sounds clear on the right. Decreased breath sounds on the left. She does have a healing left thoracotomy incision as well as a healing chest tube site. GASTROINTESTINAL: Soft, nontender, nondistended. Positive bowel sounds 4 quads. EXTREMITIES: Lower extremities negative for edema. NEUROLOGIC: No focal deficits noted. DIAGNOSTIC DATA: Pulmonary arteriogram: Interval partial pneumonectomy on the left. Moderate to large size left pleural effusion with left basilar atelectasis. No evidence of PE. LABORATORY DATA: White count 8, hemoglobin and hematocrit 10 and 35, platelet count of 549,000. Sodium 139, potassium 4.3, BUN 17, creatinine 0.8, blood glucose is 108, alkaline phosphatase 107, CK 481, troponin 59, and proBNP is 3246. ASSESSMENT AND PLAN: 1. Dyspnea especially on exertion secondary to a large left pleural effusion. The patient is status post a left thoracotomy with a left upper lobectomy secondary to non-small cell carcinoma by Dr. Bethel Langston. She was given a dose of intravenous Lasix in the emergency department as well as a dose of Solu-Medrol. We will continue her n.p.o. status and await Dr. Langston's recommendations and continue home medications when reconciled. 2. Hypertension. 3. Coronary artery disease history, status post coronary artery bypass graft, myocardial infarction with stents. No complaints of chest pain. 4. Gastroesophageal reflux disease. 5. Hypothyroidism. 6. Further recommendations to follow physician evaluation, laboratory and diagnostic data. Dictated by KAROL Short for Satya Galvez MD cc: MD Bethel Mejia MD
[2019-11-27 20:09] LABS: URINE SOURCE CLEAN CATCH
--- NOTE | 2019-11-27 20:09 | HISTORY AND PHYSICAL ---
ADDENDUM: The patient was seen and examined by me face to face. All of the laboratory, vital signs, and images were reviewed. She presented to the emergency department with some shortness of breath that has been going on since last Monday apparently. Also, she has been complaining of pressure-like chest pain radiating to the neck. We did a pulmonary arteriogram that showed an interval partial pneumonectomy on the left, rxwahyqg-[id number]-syyaa size pleural effusion with left basilar atelectasis. No evidence of pulmonary embolism. This patient has been evaluated by Dr. Langston and he states that the changes are not too much, and they were basically probably expected and typical for a postoperative procedure. He does not recommend to tap this patient. I also checked her electrocardiogram, and I compared these with the previous ones done here. Actually, I just have one that has been done on 11/07/2019. At this time, I can see some T-wave inversion between V4 and V6. AVF is also inverted. I will go ahead and put her on her home medications. I will do serial troponin. She has T-wave inversion in some of the leads. She is on anticoagulation including Brilinta. Like I said, Cardiology Department has been consulted. I agree with the rest of the nurse practitioner's assessment and plan. This patient seems to be stable right now. She is not complaining of chest pain or shortness of breath at this moment. Her oxygen saturation is stable and no fever. cc: MD Bethel Mejia MD
[2019-11-27 20:12] LABS: BILIRUBIN URINE NEGATIVE (NEGATIVE); BLOOD URINE NEGATIVE (NEGATIVE); COLOR YELLOW; GLUCOSE URINE NEGATIVE (NEGATIVE); KETONE URINE NEGATIVE (NEGATIVE); LEUKOCYTES URINE NEGATIVE (NEGATIVE); NITRITE URINE NEGATIVE (NEGATIVE); PROTEIN URINE NEGATIVE (NEGATIVE); SP GRAVITY URINE 1.032; TURBIDITY URINE CLEAR (CLEAR); UR EPITHELIAL CELLS <10 /HPF (<10); URINE BACTERIA NEGATIVE /HPF; URINE RBC <10 /HPF (<10); URINE WBC <10 /HPF (<10); UROBILINOGEN URINE NORMAL (NORMAL)
[2019-11-27] MEDS ORDERED: MELATONIN PO SCH (21:00)
[2019-11-27] MEDS ORDERED: LIPITOR PO SCH (21:00)
[2019-11-27] MEDS: BRILINTA PO SCH (22:50)
[2019-11-27] MEDS: CARAFATE PO SCH (22:50)
--- NOTE | 2019-11-28 06:31 | Diag Imaging Result Doc PS360 ---
CHEST-PORTABLE - 11/28/2019 INDICATION: L pl effusion COMPARISON: 11/27/2019 FINDINGS: Stable lobectomy changes on the left side. No infiltrates. Heart size is normal. IMPRESSION: No complication. Electronically signed by Lane Bess 11/28/2019 6:29 AM
[2019-11-28 06:57] LABS: BASO# 0.02 X1000 (0.0-0.2); BASO% 0.2 % (0.0-0.8); EOS# 0.02 X1000 (0.0-0.7); EOS% 0.2 % (0.0-10.0); HEMATOCRIT 35.3 % (37.0-47.0); HEMOGLOBIN 10.7 g/dL (12.0-16.0); IMM GRAN# 0.02 X1000 (0.0-0.04); IMM GRAN% 0.2 % (0.0-0.5); LYMPH# 1.82 X1000 (1.2-3.4); LYMPH% 20.5 % (20.5-51.1); MCH 25.1 PG (27-31); MCHC 30.3 g/dL (33-37); MCV 82.7 FL (81-99); MONO# 1.01 X1000 (0.11-0.59); MONO% 11.4 % (1.7-9.3); MPV 9.6 FL (7.4-10.4); NEUT# 5.97 X1000 (1.4-6.5); NEUT% 67.5 % (42.2-75.2); PLT 590 X1000 (130-400); RBC 4.27 XMIL (4.2-5.4); RDW 18.9 % (11.5-14.5); WBC 8.86 X1000 (4.8-10.8)
[2019-11-28] MEDS ORDERED: NEXIUM PO SCH (07:00)
[2019-11-28] MEDS ORDERED: SYNTHROID PO SCH (07:00)
[2019-11-28 07:36] LABS: AGAP 12; ALB/GLOB RATIO 0.8; ALKALINE PHOSPHATASE 95 U/L (32-104); BUN 20 mg/dL (8-22); CALCIUM 8.7 mg/dL (8.8-10.2); CHLORIDE 103 mmol/L (98-107); COSMO 281; CREATININE 0.9 mg/dL (0.5-0.9); ESTIMATED GFR > 60; GLUCOSE 89 mg/dL (70-104); GOT 31 U/L (10-30); GPT 19 U/L (10-36); POTASSIUM 4.4 mmol/L (3.5-5.1); SODIUM 140 mmol/L (136-145); TCO2 25 mmol/L (25-35); TOTAL BILIRUBIN 0.24 mg/dL (0.20-1.00); TOTAL PROTEIN 6.9 g/dL (6.3-8.3)
--- NOTE | 2019-11-28 08:30 | EKG Report ---
Test Performed on : 11/28/2019 08:06:36 AM Test Reason : chest pain Blood Pressure : / mmHG Vent. Rate : 074 BPM Atrial Rate : 074 BPM P-R Int : 158 ms QRS Dur : 076 ms QT Int : 404 ms P-R-T Axes : 061 -10 092 degrees QTc Int : 448 ms Normal sinus rhythm. Possible Left atrial enlargement Inferior infarct , age undetermined Possible Anterior infarct (cited on or before 07-NOV-2019) Abnormal ECG When compared with ECG of 27-NOV-2019 09:30, (Unconfirmed) Inferior infarct is now present Serial changes of Anterior infarct present Confirmed by Wilfredo Fuentes MD ([id number]) on 11/29/2019 4:34:32 PM
[2019-11-28] MEDS ORDERED: ASPIRIN PO SCH (09:00)
[2019-11-28] MEDS ORDERED: ZEBETA PO SCH (09:00)
[2019-11-28] MEDS ORDERED: LOTENSIN PO SCH (09:00)
[2019-11-28] MEDS ORDERED: CYMBALTA PO SCH (09:00)
[2019-11-28] MEDS: BRILINTA PO SCH (09:23)
[2019-11-28] MEDS: CARAFATE PO SCH (09:24)
--- NOTE | 2019-11-28 11:47 | GENERAL SURGERY PROGRESS NOTE ---
DATE: 11/28/2019 Ms. Ortiz is doing generally well. She has no complaints this morning. I will give her regular food. She is awaiting further evaluation, possibly by the extruder operator horizontal. I have nothing further to recommend. cc: Bethel Langston MD
--- NOTE | 2019-11-28 12:19 | CARDIOLOGY CONSULTATION ---
DATE: 11/28/2019 CHIEF COMPLAINT ON PRESENTATION: Nervousness. HISTORY OF PRESENT ILLNESS: Ms Ortiz is a 74-year-old white female who had a recent left thoracotomy with left upper lobectomy. It was done approximately 2 weeks ago for, I believe, a diagnosis of lung cancer. She reported she was convalescing well until Monday when she began to feel very nervous. She said she had difficulty concentrating and shaking. She had no complaints of pain to me and denied any shortness of breath. Again, she denied any specific pain or discomfort in her chest area. She was evaluated by her surgeon, and they felt that she needed an emergency room evaluation. The patient has a history of cardiac disease, followed by Dr. Walton. It sounds like she had a bypass in 2000. She denies any history of atrial fibrillation. Prior to a few days ago, she reported she was recovering well from her thoracotomy. PAST MEDICAL HISTORY: 1. Significant for coronary disease with coronary bypass grafting. I do not have details of this operation. We are currently pending records from Dr. Walton's office. 2. Hypertension. 3. Hyperlipidemia. 4. Reflux disease. 5. Hypothyroidism. SOCIAL HISTORY: Former smoker. Quit smoking in 2003. She smoked 2 packs per day up until that time. No illicit drugs. No alcohol. She is . FAMILY HISTORY: She reported some sort of heart disease in her father. REVIEW OF SYSTEMS: A 10-system review of systems is negative. PHYSICAL EXAMINATION: Vital Signs: She is afebrile. Heart rate is 73, blood pressure 119/55. Generally: She is in no acute distress. HEENT: Oropharynx is moist. She has poor dentition. Her eye examination is pink conjunctivae. White sclerae. Neck: Examination shows no obvious thyromegaly or thyroid tenderness. Cardiovascular: She sounds to be in a regular rate and rhythm. I do not hear any obvious murmurs. She has no S3. She has no lower extremity edema. Chest: Her chest exam has some reduced breath sounds in the left base. She has no increased work of breathing. She has a left-sided thoracotomy scar that appears clean and dry and intact. Abdomen: Soft, nontender. She has no obvious organomegaly. Skin: Warm and dry throughout without any rashes. Neurological: She is moving all extremities well. She has no lateralizing deficits. PERTINENT DATA: She had a chest CTA showing an interval partial pneumonectomy on the left with a moderate to large size left pleural effusion with associated left atelectasis. No evidence of PE. She had an electrocardiogram on the that demonstrated sinus rhythm. She had nonspecific ST-T changes. Subsequent EKG on the at 8:06 shows sinus rhythm, nonspecific ST-T changes. Her lab data demonstrates a white count 8.8, hematocrit is 35, her platelet count is 590,000. Her sodium is 140, potassium 4.4, BUN 20, creatinine 0.9. She had a set of cardiac enzymes yesterday which demonstrated an initial draw of 59. It is then downgraded from 53 to 51 and then subsequently 51 again. That is a time period of more than 12 hours during those draws. Her proBNP is 3246. Her MB fraction is 14.6. Her albumin is 3. ASSESSMENT: Ms. Ortiz is a 74-year-old female who presented for complaints of nervousness, jitteriness, and difficulty concentrating. PLAN: Again, she adamantly denied any sort of shortness of breath or chest pain to me. I questioned her on multiple occasions. She has a flat very low level troponin elevation. She has an EKG that is nonspecific and stable. I will add in amlodipine at a low dose to increase her to 2 antianginals. She is already on bisoprolol. I will follow up on her echocardiogram to evaluate. We will obtain her records from Dr. Walton's. If she has no significant change in her echocardiogram compared to previous, then I would likely not pursue a cardiac evaluation at this time considering her lack of symptoms. Further recommendations to follow the results of the echocardiogram. cc: MD Bethel Fiore MD
[2019-11-28 15:46] VITALS: BP 159/68
--- NOTE | 2019-11-28 18:59 | ECHO REPORT ---
ORDER DATE: 11/27/2019 MEASUREMENTS: Septal thickness 1.0, left ventricular internal diameter end-diastole 3.9, wall thickness 0.9, left ventricular internal diameter end-systole 2.9, aortic root 3.4, left atrium 2.2. SUMMARY: 1. Technically difficult study due to limited acoustic window quality. 2. Aortic valve is trileaflet and opens normally on 2-dimensional images. The peak gradient across the aortic valve is less than 5 mmHg. There is mild aortic regurgitation. Mitral and tricuspid valves are without evidence of structural abnormality while pulmonic valve is not well demonstrated. There is mild mitral regurgitation, trace tricuspid regurgitation, and trace pulmonic insufficiency. The estimated systolic PA pressure by Doppler is 30 mmHg. The aortic root is normal in size. 3. Normal left ventricular dimensions demonstrated. The estimated left ventricular ejection fraction appears to be at least 60%. No regional wall motion abnormalities are evident. Doppler suggests grade 1 left ventricular diastolic dysfunction. The left atrium, right atrium, and right ventricle are normal in size with grossly preserved right ventricular systolic function. 4. No pericardial effusion. 5. Appearance of inferior vena cava suggests normal central venous pressure. CONCLUSIONS: 1. Technically difficult study. 2. Mild aortic regurgitation. 3. Mild mitral regurgitation. 4. Estimated left ventricular ejection fraction at least 60%. 5. Grade 1 left ventricular diastolic dysfunction suggested. cc: MD Satya Jeffers MD Robert C. Walker, MD
[2019-11-29] MEDS ORDERED: NORVASC PO SCH (09:00)
--- NOTE | 2019-11-29 16:41 | DISCHARGE SUMMARY ---
ADMISSION DATE: 11/27/2019 DISCHARGE DATE: 11/28/2019 DISCHARGE DIAGNOSES: 1. Dyspnea on exertion and nonspecific chest pain. 2. Hypertension. 3. History of coronary artery disease status post coronary artery bypass grafting, myocardial infarction with stents. 4. Gastroesophageal reflux disease. 5. Hypothyroidism. PROCEDURES PERFORMED: 1. Chest x-ray dated 11/27/2019, impression: No acute abnormality. 2. Pulmonary arteriogram dated 11/27/2019, impression: Interval partial pneumonectomy on the left, [id number] sized pleural effusion with left basilar atelectasis, no evidence of pulmonary embolism. 3. Chest x-ray dated 03/24/2020, no complication. CONSULTATIONS: 1. Surgery Department Dr. Langston. 2. Cardiology Department Dr. Alex Lynne. PENDING RESULTS AT THE MOMENT OF DICTATION: Echocardiogram which has been evaluated by Cardiology Department and it looks like it is stable. HOSPITAL COURSE: This is a 74-year-old female who was recently diagnosed with non-small cell lung cancer of the left upper lobe, status post left thoracotomy and left upper lobectomy. She also has a history of coronary artery disease status post CABG, hypertension, hyperlipidemia, hypothyroidism, hypercholesterolemia, GERD, depression, arthritis, and AR. Apparently the patient started having some shortness of breath for a couple days and also as per the patient has some chest discomfort like pressure radiated to the neck. She called her [id number] who works for Dr. Langston who did the surgery and they felt they needed to come to the ED to be evaluated. Workup in the ED showed a CT angiogram that showed [id number] sized pleural effusion with left basilar atelectasis, but no PE. She was given Lasix. Dr. Langston evaluated this patient and he states that there is not going to be any kind of intervention at this moment. This is expected for this kind of patients and the previous procedure. Since she has am unspecific chest pain and because she has a history of CABG with AR, we consulted Cardiology Department also we saw some T- wave inversion that they are kind of better today compared with yesterday. After evaluation an echocardiogram Cardiology Department states that she seems to be stable, not having some specific chest pain, and they have recommended to follow up with her primary hybrid derivatives trader in [place], the patient seems to understand and she is really wants to go home today. She seems to be stable. No chest pain. No symptoms today. at the bedside. PHYSICAL EXAMINATION: Vital Signs: Temperature 98 degrees, pulse 80, respiratory rate 19, blood pressure 159/68 oxygen saturation 100% on room air. HEENT: Normocephalic, no trauma. PERRLA. Neck: Neck is supple. No JVD. No masses. Central trachea. She has a left anterior ecchymosis on her neck, but I do not see JVD. Chest: Clear to auscultation. Some crepitus at the bases and decreased breath sounds at the level of the upper part of the lung with some crepitus as well. She has an eschar from the previous thoracotomy that looks fine, no signs of infection or bleeding or secretion. Abdomen: Soft, nontender, nondistended. No hepatosplenomegaly. Extremities: No edema, no clubbing, no cyanosis. Neurological: The patient is awake, alert. She is oriented x3. No focal deficits. LABORATORY: WBC 8.8, hemoglobin 10.7, hematocrit 35.3, platelets 590,000. Sodium 140, potassium 4.4, chloride 103, bicarbonate 25, BUN 20, creatinine 0.9, glucose 89, calcium 8.9, AST 31, ALT 19, alkaline phosphatase 95, albumin 3. DISCHARGE MEDICATIONS: Amlodipine 2.5 mg p.o. daily, aspirin 81 mg p.o. daily, atorvastatin 40 mg p.o. at bedtime, benazepril 20 mg p.o. daily, bisoprolol 5 mg p.o. daily, diclofenac 75 mg p.o. b.i.d., duloxetine 60 mg p.o. daily, vitamin D2 5000 units p.o. every Monday at 9 a.m., Nexium 40 mg p.o. daily, Icosapent Ethyl 1 g p.o. b.i.d., levothyroxine 0.05 mg p.o. daily, Linzess 72 mcg p.o. Monday and Monday, Carafate 1 g p.o. b.i.d., and Brilinta 90 mg p.o. b.i.d. TIME SPENT DISCHARGING THIS PATIENT: 20 minutes. cc: MD Bethel Mejia MD
[2019-12-04] MEDS ORDERED: VITAMIN D PO SCH (09:00)
== END 2019-11-28 17:40 | disposition home health service (06) | DRG 204 ==
LOC: ED 09:14 → EDIPHOLD 14:20 → 4N 15:27
PROVIDERS: ADMIT Surgery; ATTEND Internal Medicine